=== PATIENT | female | born 1965 | race Caucasian/White ===

== ENCOUNTER 2019-02-10 10:34 | Emergency (ER) | payer OTHER, BC ==
[~2019-02-10] VITALS: Ht 170.2 cm; Wt 90.0 kg
[~2019-02-10 10:34] MED LIST: ACTIVELLA1 TA1 OR; ATENOLOL25 MG PO; HYDROCHLOROT25 MG PO; MIMVEY PO
[2019-02-10] MEDS ORDERED: VENLAFAXINE H37.5 M1 PO (12:02)
[2019-02-10] MEDS ORDERED: LOSARTAN POTAS100 MG PO (12:02)
[2019-02-10] MEDS ORDERED: VITAMIN B-12500 MCG PO (12:03)
[2019-02-10 12:15] VITALS: BP 140/81
== END 2019-02-10 12:25 | disposition home or self-care (01) | DRG 605 ==
LOC: ED 10:34
DX: S50.02XA Contusion of left elbow, initial encounter (principal); I10 Essential (primary) hypertension; W01.0XXA Fall on same level from slipping, tripping and stumbling without subsequent striking against object, initial encounter; Y92.219 Unspecified school as the place of occurrence of the external cause; Y99.0 Civilian activity done for income or pay